=== PATIENT | male | born 1995 | race Caucasian/White ===

== ENCOUNTER 2019-10-19 18:38 | Emergency (ER) | payer BC, OTHER ==
[~2019-10-19] VITALS: Ht 180.3 cm; Wt 88.5 kg
[2019-10-19] MEDS ORDERED: HYDROmorphone 1 MG/ML, 1ML INJ ONE (20:30)
[2019-10-19] MEDS ORDERED: HYDROmorphone 1 MG/ML, 1ML INJ IM PRN (20:30)
[2019-10-19] MEDS ORDERED: DIAZEPAM 5 MG TABLET ONE (20:30)
[2019-10-19] MEDS ORDERED: ONDANSETRON ODT 4 MG PO ONE (20:30)
[2019-10-19] MEDS ORDERED: DIAZEPAM 5 MG TABLET PO ONE (20:30)
[2019-10-19] MEDS ORDERED: ONDANSETRON ODT 4 MG ONE (20:30)
[2019-10-19] MEDS ORDERED: KETOROLAC 30 MG/1 ML ONE (20:30)
[2019-10-19] MEDS ORDERED: KETOROLAC 30 MG/1 ML IM ONE (20:30)
[2019-10-19 21:05] VITALS: BP 132/88
== END 2019-10-19 21:56 | disposition home or self-care (01) ==
LOC: ED 21:48
DX: S39.012A Strain of muscle, fascia and tendon of lower back, initial encounter (principal); R20.0 Anesthesia of skin; X58.XXXA Exposure to other specified factors, initial encounter; Y93.89 Activity, other specified; Y92.89 Other specified places as the place of occurrence of the external cause; Y99.8 Other external cause status
CPT/HCPCS: 72110; 96372; 99284; J1170; J1885; Q0162